=== PATIENT | male | born 1955 | race Caucasian/White ===

== ENCOUNTER 2016-12-26 18:38 | Emergency (ER) | payer MEDICARE | END 2016-12-26 21:05 | disposition home or self-care (01) | LOC: ER 18:38 | DX: S01.01XA Laceration without foreign body of scalp, initial encounter (principal); M54.2 Cervicalgia; M54.6 Pain in thoracic spine; F17.200 Nicotine dependence, unspecified, uncomplicated; Z23 Encounter for immunization; V84.0XXA Driver of special agricultural vehicle injured in traffic accident, initial encounter; Y92.009 Unspecified place in unspecified non-institutional (private) residence as the place of occurrence of the external cause | CPT/HCPCS: 90471 ==